=== PATIENT | female | born 1975 | race Caucasian/White ===

== ENCOUNTER 2023-12-17 13:09 | Emergency (ER) | payer SELFPAY ==
[~2023-12-17] VITALS: Ht 170.2 cm; Wt 90.7 kg
[2023-12-17 13:24] VITALS: BP_SYST 119; PULSE 90; RESP 17; TEMP 97.8; O2SAT 99
[2023-12-17 13:43] LABS: BASOPHILS # (AUTO) 0.1 K/uL (0.0-0.2); BASOPHILS % (AUTO) 1.1 % (0.0-2.0); EOSINOPHILS # (AUTO) 0.1 K/uL (0.0-0.4); HEMATOCRIT 41.3 % (36-48); HEMOGLOBIN 13.7 g/dL (12.0-16.0); LYMPHOCYTES # (AUTO) 3.1 K/uL (1.0-5.5); LYMPHOCYTES % (AUTO) 26.6 % (20.5-51.5); MEAN CORPUSCULAR HEMOGLOBIN 30 pg (27-31); MEAN CORPUSCULAR HGB CONC 33 % (32-36); MEAN CORPUSCULAR VOLUME 91 fL (79.0-98.0); MONOCYTES # (AUTO) 0.6 K/uL (0.0-1.0); MONOCYTES % (AUTO) 4.9 % (1.7-9.3); NEUTROPHILS # (AUTO) 7.7 K/uL (1.8-7.7); NEUTROPHILS % (AUTO) 66.4 % (40.0-70.0); PLATELET COUNT (AUTO) 301 K/uL (130-430); RED BLOOD CELL COUNT(AUTO) 4.56 MIL/uL (4.2-6.2); RED CELL DISTRIBUTION WIDTH 16.3 % (9.0-15.0); WHITE BLOOD COUNT (AUTO) 11.6 K/uL (4.8-10.8)
[2023-12-17] MEDS ORDERED: DOXY100C5 PO (14:20)
[2023-12-17] MEDS ORDERED: IBUP-1969 PO (14:20)
[2023-12-17] MEDS ORDERED: ACET-2634 PO (14:20)
[2023-12-17] MEDS ORDERED: CLIN-142 PO (14:20)
[2023-12-17] MEDS: DOXYCYCLINE HYCLATE 100 MG TABLET PO ONE (15:14)
[2023-12-17] MEDS: CLINDAMYCIN HCL 150 MG CAPSULE PO ONE (15:14)
[2023-12-17 16:23] VITALS: BP_SYST 119; PULSE 90; RESP 17; TEMP 97.8; O2SAT 99
== END 2023-12-17 15:33 | disposition home or self-care (01) ==
LOC: SED 13:09
DX: K04.7 Periapical abscess without sinus (principal); R22.1 Localized swelling, mass and lump, neck
CPT/HCPCS: 36415; 70490; 85025; 99284

== ENCOUNTER 2024-01-11 10:19 | Emergency (ER) | payer MEDICAID ==
[~2024-01-11] VITALS: Ht 170.2 cm; Wt 90.7 kg
[~2024-01-11 10:19] MED LIST: ACET-2634 PO; CLIN-142 PO; DOXY100C5 PO; IBUP-1969 PO
[2024-01-11 10:34] VITALS: BP_SYST 126; PULSE 127; RESP 18; TEMP 98.3; O2SAT 98
[2024-01-11] MEDS ORDERED: CLIN-142 PO (11:00)
[2024-01-11] MEDS ORDERED: DOXY100C5 PO (11:01)
[2024-01-11] MEDS ORDERED: CLIN-22 PO (11:01)
[2024-01-11] MEDS: CLINDAMYCIN HCL 150 MG CAPSULE PO ONE (11:30)
[2024-01-11] MEDS: DOXYCYCLINE HYCLATE 100 MG TABLET PO ONE (11:30)
[2024-01-11 12:27] VITALS: BP_SYST 126; PULSE 127; RESP 18; TEMP 98.3; O2SAT 98
== END 2024-01-11 12:26 | disposition home or self-care (01) ==
LOC: SED 10:19
DX: K04.7 Periapical abscess without sinus (principal); R22.0 Localized swelling, mass and lump, head; F15.90 Other stimulant use, unspecified, uncomplicated; Z79.899 Other long term (current) drug therapy; Z79.2 Long term (current) use of antibiotics
CPT/HCPCS: 99283